=== PATIENT | male | born 1970 | race Caucasian/White ===

== ENCOUNTER 2018-12-28 09:04 | Day surgery (SDC) | payer OTHER ==
[~2018-12-28] VITALS: Ht 190.5 cm; Wt 135.8 kg
[~2018-12-28 09:04] MED LIST: ANTIBIOTIC; DIPH50 PO; FLUT.05NI; IBUP800 PO; LISI5 PO; MECL25 PO; OXYACE5T PO; PANT40 PO; PROM25 PO; Senna8.6 MG PO; ZOLP5 PO; [UNRECOGNIZED DRUG - REMARK]
== END 2018-12-28 11:14 | disposition home or self-care (01) ==
LOC: ORSCSDS 09:04
PROVIDERS: Surgery
PROC: 0DJD8ZZ Inspection of Lower Intestinal Tract, Via Natural or Artificial Opening Endoscopic (ICD-10-PCS; principal; 2018-12-28 10:30)
DX: Z12.11 Encounter for screening for malignant neoplasm of colon (principal); Z86.010 Personal history of colon polyps; G47.30 Sleep apnea, unspecified; G47.33 Obstructive sleep apnea (adult) (pediatric); I10 Essential (primary) hypertension; K21.9 Gastro-esophageal reflux disease without esophagitis; E66.9 Obesity, unspecified; Z68.37 Body mass index [BMI] 37.0-37.9, adult; Z79.899 Other long term (current) drug therapy
CPT/HCPCS: J2405; J2704

== ENCOUNTER 2019-07-05 19:55 | Observation (INO) | payer OTHER ==
[~2019-07-05] VITALS: Ht 190.5 cm; Wt 135.5 kg
[2019-07-05 20:42] LABS: BASOPHILS ABSOLUTE AUTO 0.03 K/mm3 (0.00-0.23); BASOPHILS PERCENT AUTO 0 % (0-2); EOSINOPHILS ABSOLUTE AUTO 0.26 K/mm3 (0.00-0.68); EOSINOPHILS PERCENT AUTO 3 % (0-6); Hematocrit 44.9 % (37.0-53.0); Hemoglobin 15.1 g/dL (13.5-17.5); IMMATURE GRAN ABSOLUTE AUTO 0.01 K/mm3 (0.00-0.10); IMMATURE GRAN PERCENT AUTO 0 % (0-1); LYMPHOCYTES ABSOLUTE AUTO 3.36 K/mm3 (0.84-5.20); LYMPHOCYTES PERCENT AUTO 39 % (21-46); MONOCYTES ABSOLUTE AUTO 0.66 K/mm3 (0.16-1.47); MONOCYTES PERCENT AUTO 8 % (4-13); Mean Corpuscular HGB 30.9 pg (26.0-34.0); Mean Corpuscular HGB Conc 33.6 g/dL (31.5-36.5); Mean Corpuscular Volume 92 fL (80-100); Mean Platelet Volume 10.8 fL (9.1-12.4); NEUTROPHILS ABSOLUTE AUTO 4.21 K/mm3 (1.96-9.15); NEUTROPHILS PERCENT AUTO 49 % (41-73); Platelet Count 187 K/mm3 (150-400); RDW Standard Deviation 40.6 fL (35.1-46.3); Red Blood Cell Count 4.89 M/mm3 (4.30-5.90); White Blood Cell Count 8.53 K/mm3 (4.00-11.30)
[2019-07-05 20:58] LABS: International Normalized Ratio 0.91; Prothrombin Time Results 9.8 Sec (9.7-11.5)
[2019-07-05 21:04] LABS: Alanine Aminotransfer (ALT/SGP 63 U/L (12-78); Albumin, Blood 3.9 g/dL (3.4-5.0); Albumin/Globulin Ratio 1.2 (0.8-1.8); Alk Phos 65 U/L (50-136); Anion Gap 8 mmol/L (6-16); Aspartate Aminotrans (AST/SGOT 39 U/L (12-37); Bilirubin, Total 0.7 mg/dL (0.1-1.0); Blood Urea Nitrogen 21 mg/dL (8-24); Bun/Creatinine Ratio 19.6 (12.0-20.0); CO2, Blood 22 mmol/L (21-32); Calcium, Blood 8.8 mg/dL (8.5-10.1); Chloride, Blood 109 mmol/L (98-108); Creatinine, Blood 1.07 mg/dL (0.60-1.20); Globulin, Blood 3.3 g/dL (2.2-4.0); Glomerular Filtration Rate >60 (60-); Glucose, Blood 110 mg/dL (70-99); Potassium, Blood 3.6 mmol/L (3.5-5.5); Sodium, Blood 139 mmol/L (136-145); Total Protein, Blood 7.2 g/dL (6.4-8.2); Troponin I <0.015 ng/mL (0.000-0.040)
[2019-07-05 22:04] LABS: U Amphetamine Screen Not Detected; U Barbituate Screen Not Detected; U Benzodiazapine Screen Not Detected; U Buprenorphine Screen Not Detected; U Cannabinoids Screen Not Detected; U Cocaine Screen Not Detected; U Methadone Screen Not Detected; U Methamphetamine Screen Not Detected; U Opiates Screen Not Detected; U Oxycodone Screen Not Detected; U Phencyclidine Screen Not Detected; U Propoxyphene Screen Not Detected
--- NOTE | 2019-07-05 23:40 | NUR ---
ADMIT NOTE: ADMIT 49 YEAR OLD MALE TO ICU 10 PER [place] VIA ER TO HOSPITALIST DR LONG . GAIT STEADY TO BED. DENIES NUMBNESS/TINGLING TO R HAND AND LEG. 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 LUNG SOUNDS CLEAR RESPIRATIONS REGULAR AND EASY. ABDOMEN SOFT WITH BOWEL SOUNDS FOUR QUADS. [place] [facility] CONTINUE TO MONITOR AND REPORT CHANGE IN PATIENT CONDITION
[2019-07-06 05:03] LABS: BASOPHILS ABSOLUTE AUTO 0.03 K/mm3 (0.00-0.23); BASOPHILS PERCENT AUTO 1 % (0-2); EOSINOPHILS ABSOLUTE AUTO 0.11 K/mm3 (0.00-0.68); EOSINOPHILS PERCENT AUTO 2 % (0-6); Hematocrit 42.9 % (37.0-53.0); Hemoglobin 14.5 g/dL (13.5-17.5); IMMATURE GRAN ABSOLUTE AUTO 0.02 K/mm3 (0.00-0.10); IMMATURE GRAN PERCENT AUTO 0 % (0-1); LYMPHOCYTES ABSOLUTE AUTO 1.94 K/mm3 (0.84-5.20); LYMPHOCYTES PERCENT AUTO 33 % (21-46); MONOCYTES ABSOLUTE AUTO 0.47 K/mm3 (0.16-1.47); MONOCYTES PERCENT AUTO 8 % (4-13); Mean Corpuscular HGB 30.6 pg (26.0-34.0); Mean Corpuscular HGB Conc 33.8 g/dL (31.5-36.5); Mean Corpuscular Volume 91 fL (80-100); Mean Platelet Volume 10.8 fL (9.1-12.4); NEUTROPHILS ABSOLUTE AUTO 3.25 K/mm3 (1.96-9.15); NEUTROPHILS PERCENT AUTO 56 % (41-73); Platelet Count 182 K/mm3 (150-400); RDW Coefficient Variation 12.1 % (11.7-14.2); RDW Standard Deviation 40.1 fL (35.1-46.3); Red Blood Cell Count 4.74 M/mm3 (4.30-5.90); White Blood Cell Count 5.82 K/mm3 (4.00-11.30)
[2019-07-06 05:24] LABS: Alanine Aminotransfer (ALT/SGP 61 U/L (12-78); Albumin, Blood 3.7 g/dL (3.4-5.0); Albumin/Globulin Ratio 1.2 (0.8-1.8); Alk Phos 57 U/L (50-136); Anion Gap 9 mmol/L (6-16); Aspartate Aminotrans (AST/SGOT 32 U/L (12-37); Bilirubin, Total 0.9 mg/dL (0.1-1.0); Blood Urea Nitrogen 19 mg/dL (8-24); Bun/Creatinine Ratio 19.3 (12.0-20.0); CO2, Blood 22 mmol/L (21-32); Calcium, Blood 8.5 mg/dL (8.5-10.1); Chloride, Blood 111 mmol/L (98-108); Creatinine, Blood 0.98 mg/dL (0.60-1.20); Glomerular Filtration Rate >60 (60-); Glucose, Blood 112 mg/dL (70-99); Potassium, Blood 3.6 mmol/L (3.5-5.5); Sodium, Blood 142 mmol/L (136-145); Total Protein, Blood 6.7 g/dL (6.4-8.2); Troponin I <0.015 ng/mL (0.000-0.040)
--- NOTE | 2019-07-06 06:02 | NUR ---
SHIFT SUMMARY : RESTS QUIETLY WHEN UNDISTURBED MONITOR INTACT SHOWING SINUS RHYTHM. HEART RATE 60'S. STATES L ARM ACHES. EKG OBTAINTED AND DR LONG NOTIFIED. NTG DRIP ON STANDBY. CO CONTINUED NUMBNESS IN R FOREHEAD. DENIES NUMBNESS ELSEWHERE. [place] [facility] AND REPOSITIONS SELF IN BED. AABDOMEN SOFT WITH BOWEL SOUNDS FOUR QUADS. VOIDS BERTHA URINE PER URINAL, NO EDEMA NOTED PEDAL PULSES PRESENT. CONTINUE TO MONITOR AND REPORT CHANGE IN PATIENT CONDITION.
--- NOTE | 2019-07-06 07:28 | NUR ---
PATIENT GAVE PERMISSION TO PROVIDE CARE ON 07/06/2019.
--- NOTE | 2019-07-06 10:39 | NUR ---
ASSUMED CARE A/O X4, VSS, NITRO GTT REMAINS OFF, NUMT ON RIGHT UPPER SIDE OF FACE, PT REPORTS IT IS IMPROVING, AND OTHER NEURO ASSESSMENT WNL. PT DENIES CP AND SOB. MEDICATED FOR HEADACHE. MRI AND ECHO COMPLETED AND PT TOLERATED IT WELL. PATIENT RESTING IN BED WITHOUT COMPLAINTS.
--- NOTE | 2019-07-06 10:51 | NUR ---
Echocardiogram completed.
--- NOTE | 2019-07-06 13:36 | NUR ---
UPDATE PATIENT REPORTS IMPROVEMENT ON RIGHT SIDED NUMBT AND HEADACHE. PT WAS ABLE TO AMBULATE INDEPENDENTLY TO SINK TO PERFORM ORAL CARE AND TO THE BR. PTS ANXIETY APPEARS TO ALSO HAVE DECREASED. VS REMAINS STABLE.
--- NOTE | 2019-07-06 18:08 | NUR ---
END OF SHIFT PT IS LAYING WATCHING T.V., VSS AND HAS DENIED CP/PRESSURE. NUMT TO FACE MINIMAL. NEURO ASSESSMENT WNL. GAIT STEADY WHEN AMBULATING IN ROOM AND TOLERATED MEALS WELL. ADDITIONAL SPECIMENS SENT LAB THIS AFTERNOON. 24 HOURS URINE STARTED AT 1330 TODAY. PT NOW MEDICAL STATUS WITHOUT TELE. NO BM THIS SHIFT. PT DENIES COMPLAINTS AT THIS TIME. WILL REPORT TO ONCOMING SHIFT. WAS UPDATED ON PT STATUS EARLIER TODAY.
--- NOTE | 2019-07-06 19:24 | NUR ---
BELLSTAFF WORKED WITH STUDENT RN TODAY, ASSISTED WITH PT CARE AND CHARTING. ALL CHARTING REVIEWED BY THIS RN, AGREE WITH STUDENTS CARTING AND ASSESSMENTS.
--- NOTE | 2019-07-06 19:35 | NUR ---
ASSESSMENT/ASSUMED CARE PT SITTING UP IN BED WATCHING TV. DENEIS PAIN OR DISCOMFORT AT THIS TIME. PT TALKING ABOUT HUNTING THURSDAY. LUNGS CLEAR ON ROOMAIR. CPAP AT BEDSIDE. DENIES SOB OR COUGH. HEART RATE REGULAR. BP ELEVATED AFTER TALKING ABUT HUNTING WILL CONT TO MONITOR. NO EDEMA. BT+ TRESSA SOFT AND NONTENDER. DENIES N/V. SNACK OF 1/2 SANDWICH AND ICE CREAM GIVEN. IV 20G TO RIGHT HAND AND 18G TO LEFT AC SALINE LOCKED, BOTH SITES CLEAR AND FLUSHED WITHOUT DIFFICULTY. 24 HR URINE IN PROGRESS. PT UNDERSTAND NOT TO DUMP URINE. NPO AFTER MIDNIGHT FOR RENAL US IN AM. SKIN WARM AND DRY. PT REPORTS STILL HAVING NUMBNESS AND TINGLING TO RIGHT FOREHEAD BUT MUCH IMPROVED FROM YESTERDAY. NO NUMBNESS OR TINGLING TO EXT.
--- NOTE | 2019-07-07 05:19 | NUR ---
PAIN PT SLEEPING AWAKENS EASILY. C/O HEADACHE 3/10 MED WITH TYLENOL.
--- NOTE | 2019-07-07 05:43 | NUR ---
SHIFT SUMMARY PT SLEPT THOUGHTOUT THE NIGHT. AWAKENS EASILY. C/O HEADACHE THIS AM AND MED WITH TYLENOL. PT NPO FOR RENAL US THIS AM. VSS. 24 HR URINE IN PROGRESS. PT TURNING AND MOVING SELF IN BED. NO ACUTE CHANGE. REPORT TO ON COMING NURSE
--- NOTE | 2019-07-07 10:06 | NUR ---
PT TRANSFERED. PT TRANSFERED AT 1006 FROM ICU. PT STABLE AT THIS TIME. AWAITING DC AFTER 24 HR URINE COLLECTION.
[2019-07-07] MEDS ORDERED: AMLO5 PO (11:38)
--- NOTE | 2019-07-07 14:19 | NUR ---
PT DISCHARGED. PT DISCHARGED IN STABLE CONDITION WITH NO CHANGES IN ASSESSMENT AT THIS TIME. PT EDUCATED ON DC INSTRUCTIONS AND NEW MEDS. DENIES NEED FOR FURTHER INSTRUCTION. PT ESCORTED OUT AND DRIVEN HOME BY .
[2019-07-09 11:09] LABS: METANEPHRINE, PL 17 pg/mL (0-62); NORMETANEPHRINE, PL 32 pg/mL (0-145)
[2019-07-09 17:09] LABS: METANEPH/CREAT RATIO 0.2 (0.0-1.0)
[2019-07-13 18:07] LABS: METANEPHRINE, UR 42 ug/L (Undefined)
== END 2019-07-07 14:00 | disposition home or self-care (01) ==
LOC: ER 19:55 → ICUW 19:56 → MEDS 23:47 → ICUW 07-06 16:05 → MEDS 07-07 10:06 → ENPENDDIS 07-07 10:41 → MEDS 07-07 14:00
PROVIDERS: Emergency Medicine; Internal Medicine; Nurse Practitioner Acute Care; ADMIT Internal Medicine
DX: I16.1 Hypertensive emergency (principal); R20.0 Anesthesia of skin; R20.2 Paresthesia of skin; I10 Essential (primary) hypertension; K21.9 Gastro-esophageal reflux disease without esophagitis; G47.33 Obstructive sleep apnea (adult) (pediatric); Z90.5 Acquired absence of kidney; Z88.5 Allergy status to narcotic agent; Z79.899 Other long term (current) drug therapy; Z79.51 Long term (current) use of inhaled steroids
CPT/HCPCS: 36415; 70450; 70496; 70498; 70551; 71045; 80053; 81050; 82384; 82570; 83835; 84484; 85025; 85610; 85730; 93005; 93010; 93306; 93975; 94660; 96374; 96375; 99285-25; A9270; A9270-GY; G0378; J0360; Q9967

== ENCOUNTER → 2022-04-14 | Outpatient (CLI) | payer OTHER ==
[~2022-04-14] MED LIST changes: +AMLO5 PO
== END | disposition home or self-care (01) ==
LOC: LAB SHORT 15:43 → LAB 15:43
DX: L70.0 Acne vulgaris (principal)
CPT/HCPCS: 87070; 87205

== ENCOUNTER → 2024-10-06 | Outpatient (CLI) | payer OTHER ==
[2024-10-11 11:49] LABS: OVA AND PARASITE,FECAL INTERP Negative (Negative)
== END | disposition home or self-care (01) ==
LOC: LAB SHORT 11:50 → LAB 11:50
PROVIDERS: Family Medicine
DX: A09 Infectious gastroenteritis and colitis, unspecified (principal)
CPT/HCPCS: 87177; 87209

== ENCOUNTER → 2024-11-16 | Outpatient (CLI) | payer OTHER | LOC: LAB 10:34 → LAB SHORT 10:34 | DX: L08.0 Pyoderma (principal) | CPT/HCPCS: 87070; 87077; 87147; 87186; 87205 ==